=== PATIENT | male | born 1975 | race African-American/Black ===

== ENCOUNTER 2018-09-30 16:30 | Outpatient (CLI) | payer OTHER ==
--- NOTE | 2018-09-30 17:49 | RAD ---
LUMBAR SPINE THREE VIEWS: INDICATIONS: Low back pain with sciatica. FINDINGS: There are five lumbar type vertebrae. Spinal alignment appears within normal limits. There are mild vascular calcifications seen involving the abdominal aorta. No acute fracture or subluxation is dino dent. IMPRESSION: No acute osseous abnormality. POS: AISLINN
== END 2018-09-30 16:31 | disposition home or self-care (01) ==
LOC: MADRAD 16:30
PROVIDERS: ATTEND Family Medicine
DX: M54.41 Lumbago with sciatica, right side (principal); M54.42 Lumbago with sciatica, left side
CPT/HCPCS: 72100

== ENCOUNTER 2019-11-27 14:13 | Outpatient (CLI) | payer OTHER ==
--- NOTE | 2019-11-27 14:36 | RAD ---
EXAM: XR Lumbar Spine 2 Or 3 View PROVIDED CLINICAL HISTORY: Lumbago with sciatica. COMPARISON: 09/30/2018 FINDINGS: Mild straightening of the normal lumbar curvature. The vertebral body heights are within normal limit s. No fracture or subluxation is seen involving the lumbar spine. Vascular calcifications are seen in the abdominal aorta. This was also present on prior study. IMPRESSION: Stable views of the lumbar spine without fracture or subluxation. There is straightening of the xiao l lumbar curvature.
== END 2019-11-27 14:14 | disposition home or self-care (01) ==
LOC: MADRAD 14:13
PROVIDERS: ATTEND Family Medicine
DX: M54.41 Lumbago with sciatica, right side (principal); M54.42 Lumbago with sciatica, left side; M43.8X6 Other specified deforming dorsopathies, lumbar region
CPT/HCPCS: 72100

== ENCOUNTER 2022-03-22 21:02 | Emergency (ER) | payer OTHER ==
[~2022-03-22 21:02] MED LIST: Amoxicillin/Potassium Clav 875 MG TAB ONE
== END 2022-03-22 22:21 | disposition home or self-care (01) ==
LOC: MADERS 21:02
DX: K02.9 Dental caries, unspecified (principal)
CPT/HCPCS: 99282